=== PATIENT | female | born 1945 | race Caucasian/White ===

== ENCOUNTER 2020-10-16 14:05 | Outpatient (CLI) | payer MEDICARE ==
[2020-10-16 15:18] LABS: Bilirubin Neg (Negative); Blood, Urine Negative (Negative); Clarity Clear (Clear); Glucose, Urine (Dipstick) Normal (Negative); Ketone, Urine Negative (Negative); Leukocyte 100 (Negative); Nitrite Negative (Negative); Protein, Urine (Dipstick) Negative (Neg-Trace); Urobilinogen Normal mg/dL (Less than 2)
[2020-10-16 15:26] LABS: #Basophils 0.1 10x3/uL (0.0-0.2); #Eosinphils 0.3 10x3/uL (0.0-0.5); #Monocytes 0.6 10x3/uL (0.0-1.1); #Neutrophils 3.3 10x3/uL (1.5-8.4); %Basophils 1.4 % (0.0-2.0); %Eosinophils 4.1 % (0.0-6.0); %Lymphocytes 41.3 % (18.0-47.0); %Monocytes 8.5 % (0.0-10.0); %Neutrophils 44.4 % (40.0-75.0); Hemoglobin 13.5 g/dL (12.0-15.5); Mean Corpuscular HGB CONC 33.3 g/dL (32.0-36.0); Mean Corpuscular Hemoglobin 29.9 pg (27.0-33.0); Mean Corpuscular Volume 89.6 fl (81.6-98.3); Mean Platelet Volume 9.7 fl (7.4-10.4); Platelet Count 253 10x3/uL (150-450); RBC Distribution Width 12.4 % (11.5-14.5); Red Blood Cell (RBC) Count 4.52 10x6/uL (3.90-5.03); White Blood Cell (WBC) Count 7.4 10x3/uL (3.5-10.5)
[2020-10-16 15:27] LABS: RBC/HPF None Seen HPF (0-3); Renal Epithelial 0-3 HPF (None Seen); Squamous Epithelial 0-3 HPF (0-3); Transitional Epithelial 0-3 HPF (None Seen); WBC/HPF 0-3 HPF (0-3)
[2020-10-16 15:28] LABS: Bacteria/HPF Rare-Few HPF (None Seen)
[2020-10-16 15:30] LABS: Prothrombin Time 10.8 sec (9.5-12.1)
[2020-10-16 15:38] LABS: Anion Gap 13 mmol/L (10-20); BUN (Urea Nitrogen) 16 mg/dL (9.8-20.1); Calc. Creatinine Clearance 0 mL/min (70-130); Calcium 9.3 mg/dL (7.8-10.44); Carbon Dioxide 24 mmol/L (23-31); Chloride 107 mmol/L (98-107); Glucose 121 mg/dL (83-110); Potassium 4.1 mmol/L (3.5-5.1); Sodium 140 mmol/L (136-145)
[2020-10-17 11:37] LABS: SARS-CoV-2 PCR by NAA Not Detected (NotDetected)
== END 2020-10-16 14:06 | disposition home or self-care (01) ==
LOC: LABBT 14:05
PROVIDERS: ATTEND Orthopaedic Surgery
DX: Z01.818 Encounter for other preprocedural examination (principal); M17.11 Unilateral primary osteoarthritis, right knee; Z20.822 Contact with and (suspected) exposure to COVID-19
CPT/HCPCS: 80048; 81001; 85025; 85610; 87081; 93005; U0003; U0005; 87635; 93010

== ENCOUNTER 2020-10-21 05:28 | Inpatient (IN) | payer MEDICARE ==
[2020-10-20 09:57] VITALS: BMI 36.2
[2020-10-21] MEDS ORDERED: Tranexamic Acid 1,000 MG/10 ML VIAL ONE (06:08)
[2020-10-21] MEDS ORDERED: Sodium Chloride 0.9% 100 ML ONE (06:08)
[2020-10-21] MEDS ORDERED: Vancomycin HCl 1.5 GM in Sodium Chloride 0.9% 250 ML 300 ML IVPB SCH (06:15)
[2020-10-21] MEDS ORDERED: Midazolam HCl 2 mg/2 ml Vial ONE ×2 (06:37→07:10)
[2020-10-21] MEDS ORDERED: Lidocaine 1% (PF) 30 ML VIAL ONE (06:37)
[2020-10-21] MEDS ORDERED: Fentanyl 100 MCG/2 ML VIAL ONE ×3 (06:37→07:45)
[2020-10-21] MEDS ORDERED: Bupivacaine HCl 0.5%/Epinephrine 1:200,000/PF 30 ml Vial ONE (06:40)
[2020-10-21] MEDS ORDERED: Ondansetron PF 4 MG/2 ML Vial ONE (06:40)
[2020-10-21] MEDS ORDERED: Lidocaine 1% PF 5 ML VIAL ONE (06:40)
[2020-10-21] MEDS ORDERED: PROPOFOL 200 MG/20 ML VIAL ONE (06:40)
[2020-10-21] MEDS ORDERED: Dexamethasone 20 MG/5 ML VIAL ONE (06:40)
[2020-10-21] MEDS ORDERED: Ropivacaine 2% HCl/PF (20 MG/10 ML VIAL) ONE (06:40)
[2020-10-21] MEDS ORDERED: ePHEDrine Sulfate 50 MG/10 ML VIAL ONE (06:40)
[2020-10-21] MEDS ORDERED: Acetaminophen 325 MG TAB PO PRN (06:56)
[2020-10-21] MEDS ORDERED: traMADol HCl 50 MG TAB PO PRN ×3 (06:56→08:00)
[2020-10-21] MEDS ORDERED: Promethazine HCl 25 MG/ML VIAL IM PRN ×2 (06:56→08:00)
[2020-10-21] MEDS ORDERED: Ondansetron PF 4 MG/2 ML Vial IVP PRN ×2 (06:56→08:00)
[2020-10-21] MEDS ORDERED: Fentanyl 100 MCG/2 ML VIAL SLOW IVP PRN ×2 (06:56)
[2020-10-21] MEDS ORDERED: Zolpidem Tartrate 5 MG TAB PO PRN ×2 (06:56→08:00)
[2020-10-21] MEDS ORDERED: HYDROcodone/Acetaminophen 10/325 mg Tablet PO PRN ×4 (06:56→08:00)
[2020-10-21] MEDS ORDERED: diphenhydrAMINE 25 MG CAP PO PRN (06:56)
[2020-10-21] MEDS ORDERED: Fentanyl 100 MCG/2 ML VIAL IV PRN (08:00)
[2020-10-21] MEDS ORDERED: Ropivacaine HCl/PF 250 ML in Premix Bag 1 BAG NERVE BLCK SCH (08:00)
[2020-10-21] MEDS ORDERED: DHA PO SCH (09:00)
[2020-10-21] MEDS ORDERED: FISH OIL PO SCH (09:00)
[2020-10-21] MEDS ORDERED: Cholecalciferol 1,000 UNITS (25 MCG) TAB PO SCH (09:00)
[2020-10-21] MEDS ORDERED: Lisinopril 20 MG TAB PO SCH (09:00)
[2020-10-21] MEDS ORDERED: OMEGA PO SCH (09:00)
[2020-10-21] MEDS ORDERED: [UNRECOGNIZED DRUG - OTHER] PO SCH (09:00)
[2020-10-21] MEDS ORDERED: EPA PO SCH (09:00)
[2020-10-21] MEDS ORDERED: Non-Formulary Item 1 EACH (Benazepril Hcl [Benazepril Hcl] 40 MG Tablet) PO SCH (09:00)
[2020-10-21] MEDS ORDERED: Ketorolac Tromethamine 30 MG/ML VIAL ONE (13:52)
[2020-10-21] MEDS ORDERED: Ketorolac Tromethamine 30 MG/ML VIAL IVP SCH (14:00)
[2020-10-21] MEDS: Sodium Chloride 0.9% 1,000 ML IV SCH ×2 (16:01→16:05)
[2020-10-21] MEDS: Aspirin 81 mg Enteric Coated Tablet PO SCH ×2 (16:01→20:30)
[2020-10-21] MEDS: Cholecalciferol 1,000 UNITS (25 MCG) TAB PO SCH (16:01)
[2020-10-21] MEDS: Ferrous Gluconate 324 MG TAB PO SCH ×2 (16:01→20:30)
[2020-10-21] MEDS: Senokot S 8.6-50 MG TAB PO SCH ×2 (16:02→20:31)
[2020-10-21] MEDS: Fish Oil 1,000 MG CAP PO SCH ×2 (16:02→20:30)
[2020-10-21] MEDS: CEFAZOLIN 2 GM in Premix Bag 1 BAG IVPB SCH ×2 (16:02→23:02)
[2020-10-21] MEDS: Ketorolac Tromethamine 30 MG/ML VIAL IVP SCH ×3 (16:02→23:02)
[2020-10-21] MEDS: Multivitamin W/ Minerals 1 TAB PO SCH (16:02)
[2020-10-21] MEDS: Atorvastatin Calcium 20 MG TAB PO SCH (20:31)
[2020-10-21] MEDS ORDERED: Simvastatin 40 MG TAB PO SCH (21:00)
[2020-10-22] MEDS: Sodium Chloride 0.9% 1,000 ML IV SCH ×3 (05:21→22:42)
[2020-10-22] MEDS: Ketorolac Tromethamine 30 MG/ML VIAL IVP SCH ×3 (05:34→18:04)
[2020-10-22 06:01] LABS: Hemoglobin 11.1 g/dL (12.0-16.0); Mean Corpuscular HGB CONC 32.8 g/dL (32.0-36.0); Mean Corpuscular Volume 91.5 fL (78.0-98.0); Mean Platelet Volume 7.3 fL (7.4-10.4); Platelet Count 193 thou/uL (130-400); RBC Distribution Width 11.8 % (11.5-14.5); White Blood Cell (WBC) Count 13.1 thou/uL (4.8-10.8)
[2020-10-22] MEDS: Ferrous Gluconate 324 MG TAB PO SCH ×2 (08:33→19:52)
[2020-10-22] MEDS: Aspirin 81 mg Enteric Coated Tablet PO SCH ×2 (08:33→19:52)
[2020-10-22] MEDS: Cholecalciferol 1,000 UNITS (25 MCG) TAB PO SCH (08:33)
[2020-10-22] MEDS: Lisinopril 20 MG TAB PO SCH (08:33)
[2020-10-22] MEDS: Multivitamin W/ Minerals 1 TAB PO SCH (08:34)
[2020-10-22] MEDS: Fish Oil 1,000 MG CAP PO SCH ×2 (08:34→19:53)
[2020-10-22] MEDS: Senokot S 8.6-50 MG TAB PO SCH ×2 (08:34→19:53)
[2020-10-22] MEDS ORDERED: Lisinopril 10 MG TAB PO SCH (09:00)
[2020-10-22] MEDS: Atorvastatin Calcium 20 MG TAB PO SCH (19:52)
[2020-10-23] MEDS: Ketorolac Tromethamine 30 MG/ML VIAL IVP SCH ×2 (00:27→05:26)
[2020-10-23] MEDS: Ferrous Gluconate 324 MG TAB PO SCH (09:07)
[2020-10-23] MEDS: Aspirin 81 mg Enteric Coated Tablet PO SCH (09:07)
[2020-10-23] MEDS: Lisinopril 20 MG TAB PO SCH (09:08)
[2020-10-23] MEDS: Senokot S 8.6-50 MG TAB PO SCH (09:08)
[2020-10-23] MEDS: Fish Oil 1,000 MG CAP PO SCH (09:09)
[2020-10-23] MEDS: Multivitamin W/ Minerals 1 TAB PO SCH (09:09)
[2020-10-23] MEDS: Cholecalciferol 1,000 UNITS (25 MCG) TAB PO SCH (09:10)
[2020-10-23] MEDS: Sodium Chloride 0.9% 1,000 ML IV SCH (09:11)
[2020-10-23 12:16] VITALS: BP 158/61; TEMP 98.9
== END 2020-10-23 14:18 | disposition home or self-care (01) | DRG 470 ==
LOC: SDC 05:28 → SURG B 06:56 → EDSTATUS 14:30
PROVIDERS: ADMIT Orthopaedic Surgery; ATTEND Orthopaedic Surgery
PROC: 0SRC0J9 Replacement of Right Knee Joint with Synthetic Substitute, Cemented, Open Approach (ICD-10-PCS; principal; 2020-10-21)
DX: M17.11 Unilateral primary osteoarthritis, right knee (principal); Z20.822 Contact with and (suspected) exposure to COVID-19; E78.5 Hyperlipidemia, unspecified; I10 Essential (primary) hypertension; Z79.899 Other long term (current) drug therapy; Z79.82 Long term (current) use of aspirin; Z90.710 Acquired absence of both cervix and uterus
CPT/HCPCS: 36415; 85027; C1713; C1776; J0690; J1100; J1885; J2001; J2250; J2405; J2704; J2795; J3010; J3370; J3490; J7050

== ENCOUNTER 2021-05-26 08:38 | Inpatient (IN) | payer MEDICARE ==
[2021-05-20 12:58] VITALS: BMI 35.0
[2021-05-26] MEDS ORDERED: Tranexamic Acid 1,000 MG/10 ML VIAL ONE (10:39)
[2021-05-26] MEDS ORDERED: Sodium Chloride 0.9% 100 ML ONE (10:40)
[2021-05-26] MEDS ORDERED: Fentanyl 100 MCG/2 ML VIAL ONE ×2 (10:49→11:37)
[2021-05-26] MEDS ORDERED: Midazolam HCl 2 mg/2 ml Vial ONE (10:49)
[2021-05-26] MEDS ORDERED: traMADol HCl 50 MG TAB PO PRN ×3 (11:08→11:45)
[2021-05-26] MEDS ORDERED: Acetaminophen 325 MG TAB PO PRN (11:08)
[2021-05-26] MEDS ORDERED: diphenhydrAMINE 25 MG CAP PO PRN (11:08)
[2021-05-26] MEDS ORDERED: Zolpidem Tartrate 5 MG TAB PO PRN ×2 (11:08→11:45)
[2021-05-26] MEDS ORDERED: Promethazine HCl 25 MG/ML VIAL IM PRN ×3 (11:08→13:57)
[2021-05-26] MEDS ORDERED: HYDROcodone/Acetaminophen 10/325 mg Tablet PO PRN ×4 (11:08→11:45)
[2021-05-26] MEDS ORDERED: Ondansetron PF 4 MG/2 ML Vial IVP PRN ×2 (11:08→11:45)
[2021-05-26] MEDS ORDERED: Vancomycin 1.5 GRAM/300 ML BAG 1.5 GM in Premix Bag 1 BAG IVPB SCH (11:45)
[2021-05-26] MEDS ORDERED: Ropivacaine 0.2% 550 ML 550 ML NERVE BLCK SCH (11:45)
[2021-05-26] MEDS ORDERED: Fentanyl 100 MCG/2 ML VIAL SLOW IVP PRN (11:47)
[2021-05-26] MEDS ORDERED: Ketorolac Tromethamine 30 MG/ML VIAL IVP SCH (12:00)
[2021-05-26] MEDS ORDERED: AMOXicillin 250 MG CAP PO SCH (12:00)
[2021-05-26] MEDS ORDERED: PROPOFOL 200 MG/20 ML VIAL ONE (12:17)
[2021-05-26] MEDS ORDERED: Glycopyrrolate 0.2 MG/ML 5 ML SYRINGE ONE (12:17)
[2021-05-26] MEDS ORDERED: Bupivacaine HCl 0.5%/Epinephrine 1:200,000/PF 30 ml Vial ONE (12:17)
[2021-05-26] MEDS ORDERED: Lidocaine 1% PF 5 ML VIAL ONE (12:17)
[2021-05-26] MEDS ORDERED: Dexamethasone 20 MG/5 ML VIAL ONE (12:17)
[2021-05-26] MEDS ORDERED: Ondansetron PF 4 MG/2 ML Vial ONE (12:17)
[2021-05-26] MEDS ORDERED: Bupivacaine PF 0.5% 30 ML VIAL ONE (13:01)
[2021-05-26] MEDS ORDERED: Morphine Sulfate 2 MG/ML SYRINGE SLOW IVP PRN (13:57)
[2021-05-26] MEDS ORDERED: Ondansetron HCl/PF 4 MG/2 ML Vial IVP PRN (13:57)
[2021-05-26] MEDS ORDERED: Promethazine HCl 25 MG/ML VIAL IVPB PRN (13:57)
[2021-05-26] MEDS: Ketorolac Tromethamine 30 MG/ML VIAL IVP SCH ×2 (19:00→21:05)
[2021-05-26] MEDS: Aspirin 81 mg Enteric Coated Tablet PO SCH (21:03)
[2021-05-26] MEDS: Sodium Chloride 0.9% 1,000 ML IV SCH ×2 (21:03)
[2021-05-26] MEDS: Fish Oil 1,000 MG CAP PO SCH (21:04)
[2021-05-26] MEDS: Atorvastatin Calcium 20 MG TAB PO SCH (21:04)
[2021-05-26] MEDS ORDERED: CEFAZOLIN 2 GM in Premix Bag 1 BAG IVPB SCH (23:45)
[2021-05-27 06:11] LABS: Hemoglobin 12.1 g/dL (12.0-16.0); Mean Corpuscular HGB CONC 34.3 g/dL (32.0-36.0); Mean Corpuscular Hemoglobin 32.3 pg (27.0-31.0); Platelet Count 216 thou/uL (130-400); RBC Distribution Width 11.4 % (11.5-14.5); Red Blood Cell (RBC) Count 3.74 mill/uL (4.20-5.40); White Blood Cell (WBC) Count 14.1 thou/uL (4.8-10.8)
[2021-05-27] MEDS: Sodium Chloride 0.9% 1,000 ML IV SCH ×2 (06:42→17:16)
[2021-05-27] MEDS: Ketorolac Tromethamine 30 MG/ML VIAL IVP SCH ×3 (06:42→22:13)
[2021-05-27] MEDS: Lisinopril 20 MG TAB PO SCH (08:47)
[2021-05-27] MEDS: Cholecalciferol 1,000 UNITS (25 MCG) TAB PO SCH (08:48)
[2021-05-27] MEDS: Aspirin 81 mg Enteric Coated Tablet PO SCH ×2 (08:48→20:20)
[2021-05-27] MEDS: Multivitamin W/ Minerals 1 TAB PO SCH (08:48)
[2021-05-27] MEDS: Senokot S 8.6-50 MG TAB PO SCH ×2 (08:48→20:20)
[2021-05-27] MEDS: Ferrous Gluconate 324 MG TAB PO SCH ×2 (08:48→20:20)
[2021-05-27] MEDS: Fish Oil 1,000 MG CAP PO SCH ×2 (08:48→20:20)
[2021-05-27] MEDS: CEFAZOLIN 2 GM, Admixture Fee 1 EACH in Sodium Chloride 0.9% 100 ML IVPB SCH ×3 (10:14→17:15)
[2021-05-27] MEDS: Atorvastatin Calcium 20 MG TAB PO SCH (20:20)
[2021-05-28] MEDS: Sodium Chloride 0.9% 1,000 ML IV SCH (01:59)
[2021-05-28] MEDS: Ketorolac Tromethamine 30 MG/ML VIAL IVP SCH (05:55)
[2021-05-28] MEDS: Aspirin 81 mg Enteric Coated Tablet PO SCH (09:13)
[2021-05-28] MEDS: Ferrous Gluconate 324 MG TAB PO SCH (09:13)
[2021-05-28] MEDS: Cholecalciferol 1,000 UNITS (25 MCG) TAB PO SCH (09:13)
[2021-05-28] MEDS: Multivitamin W/ Minerals 1 TAB PO SCH (09:13)
[2021-05-28] MEDS: Fish Oil 1,000 MG CAP PO SCH (09:13)
[2021-05-28] MEDS: Senokot S 8.6-50 MG TAB PO SCH (09:13)
[2021-05-28] MEDS: Lisinopril 20 MG TAB PO SCH (11:43)
[2021-05-28 12:11] VITALS: TEMP 99.2
[2021-05-28 13:41] VITALS: BP 132/73
[2021-05-29] MEDS ORDERED: FLU VACC QS2021-22(65YR UP)/PF 240 MCG/0.7 ML SYRINGE IM ONE (09:00)
== END 2021-05-28 14:31 | disposition home or self-care (01) | DRG 470 ==
LOC: SDC 08:38 → SURG A 17:51
PROVIDERS: ADMIT Orthopaedic Surgery; ATTEND Orthopaedic Surgery
PROC: 0SRD0J9 Replacement of Left Knee Joint with Synthetic Substitute, Cemented, Open Approach (ICD-10-PCS; principal; 2021-05-26)
PROC: 8E0YXBZ Computer Assisted Procedure of Lower Extremity (ICD-10-PCS; 2021-05-26)
DX: M17.12 Unilateral primary osteoarthritis, left knee (principal); Z20.822 Contact with and (suspected) exposure to COVID-19; Z79.899 Other long term (current) drug therapy; Z88.8 Allergy status to other drugs, medicaments and biological substances
CPT/HCPCS: 36415; 85027; A4306; C1713; C1776; J0690; J1100; J1885; J2250; J2405; J2704; J2795; J3010; J3370; J3490; J7050; S0020